=== PATIENT | female | born 1960 | race Caucasian/White ===

== ENCOUNTER → 2020-02-12 | Outpatient (CLI) | payer BC ==
[~2020-02-12] MED LIST: CO Q-10400 MG PO; DIOVAN160 MG PO; HYDROCHLOROTHIA25 MG PO; MEFENAMIC ACID250 MG PO; OMEPRAZOLE40 MG PO
--- NOTE | 2020-02-12 10:59 | Diagnostic Imaging Report ---
TECHNIQUE: Magnetic resonance imaging of the RIGHT KNEE was performed WITHOUT injected contrast. HISTORY: Right knee pain COMPARISON: None available. FINDINGS: LIGAMENTS AND TENDONS: ACL: Intact PCL: Intact Collateral ligaments: Intact Iliotibial band: Unremarkable Popliteal tendon: Intact Extensor mechanism: Intact JOINT: Menisci: Medial: Intact Lateral: Intact Articular Cartilage: Medial Compartment: Partial-thickness cartilage loss Lateral Compartment: No focal defect. Patellofemoral Compartment: Partial-thickness cartilage loss with areas of high-grade erosion. Joint Fluid: Small joint effusion. Multilobulated ganglion in the posterior recess single ganglion in the anterior recess BONE: No focal or infiltrative bone marrow replacing abnormality. No acute fracture. SOFT TISSUES: Otherwise, unremarkable. IMPRESSION: Patellofemoral and medial tibiofemoral compartment cartilage loss. No acute osseous, ligamentous, or meniscal abnormality. Signed by: Dr. Ivan Galeas M.D. on 02/12/2020 10:43 AM
== END ==
LOC: MRI 09:19
PROVIDERS: ATTEND Specialist
DX: S83.221A Peripheral tear of medial meniscus, current injury, right knee, initial encounter (principal)